=== PATIENT | male | born 1990 | race Caucasian/White ===

== ENCOUNTER 2017-03-12 06:26 | Emergency (ER) | payer OTHER ==
[~2017-03-12] VITALS: Wt 106.0 kg
--- NOTE | 2017-03-12 07:09 | ERD ---
ER Documentation Chief Complaint Chief Complaint LEFT INNNER THIGH PAIN X4 DAYS, NO INJURY, PT AMBULATORY HPI Otherwise healthy 26-year-old male presenting with a chief complaints of left upper inner leg pain worsening over the past 3 weeks. No medical conditions. Denies any trauma. No numbness, tingling, similar symptoms in past. No recent travel. No swelling. Has taken ibuprofen and Tylenol with minimal to moderate relief. Pain rated as 7 out of 10, worse with walking, and feels like his upper leg is being squeezed by 2 brick [place]. Patient has no other complaints and describes no other associated manifestations. Nursing notes have been reviewed and are consistent with history given. ROS All systems reviewed and are negative except as per history of present illness. PMhx/Soc History of Surgery: No Hx Neurological Disorder: No Hx Respiratory Disorders: Yes (ASTHMA) Hx Cardiac Disorders: No Hx Miscellaneous Medical Probl: No Hx Alcohol Use: No Hx Substance Use: No Hx Tobacco Use: No Physical Exam Vitals Vital Signs Date Time Temp Pulse Resp B/P Pulse Ox O2 Delivery O2 Flow Rate FiO2 03/12/17 06:29 98.0 95 17 144/98 100 Physical Exam Const: Well-appearing 26-year-old male in NAD. Head: Atraumatic Eyes: Normal Conjunctiva ENT: Normal External Ears, Nose and Mouth. Neck: Full range of motion..~ No meningismus. Skin: No petechiae or rashes Back: No midline or flank tenderness Ext: No cyanosis, or edema Neur: Awake and alert. Altered gait favoring left leg. Psych: Normal Mood and Affect Procedures/MDM 26-year-old otherwise healthy male presenting with a chief complaint of left inner leg pain. Denies numbness, or tingling. No back pain. No concern for neurovascular compromise. X-ray was taken of the hip, read by the radiologist, given the following impression: No evidence of fracture dislocation. Most likely diagnosis is leg pain of unknown etiology. Have discussed conservative therapy as well as follow-up with PCP within the next week. I have spoke with the patient regarding their condition and future management. They have verbally responded that they understand their status and treatment plan. The patients vitals are stable, and their current condition is appropriate for discharge. The patient will be given discharge instructions with return precautions. Departure Diagnosis: Primary Impression: Pain of left leg Condition: Stable Additional Instructions: Follow up with your PCP within the next 1-3 days for a more thorough evaluation and a possible referral to a specialist. Return the the emergency department immediately if symptoms worsen or change. If you have any questions regarding medications, ask your pharmacist or us before you leave. If any adverse reactions occur while taking your medications, discontinue the treatment and return to the emergency department immediately. Take your medications as directed, and complete the entire course of treatment. YASMANY DELCID PA-C Mar 12, 2017 07:09
--- NOTE | 2017-03-12 07:35 | RADRPT ---
PROCEDURE: XR Hip. CLINICAL INDICATION: Pain TECHNIQUE: AP and frog lateral views of the left hip were performed. COMPARISON: None. FINDINGS: Osseous structures: Normal mineralization. No evidence of fracture or dislocation. Joint spaces: Normal Soft tissues: No significant soft tissue swelling. IMPRESSION: No evidence of fracture or dislocation. RPTAT:AAJJ Physician Alexander Date Time Electronically viewed and signed by Hollie Fountain Physician on 03/12/2017 07:34 /
== END 2017-03-12 08:05 | disposition home or self-care (01) ==
LOC: FTE 06:26
DX: M79.605 Pain in left leg (principal); J45.909 Unspecified asthma, uncomplicated
CPT/HCPCS: 73510; Z7502

== ENCOUNTER 2017-10-06 11:18 | Emergency (ER) | END 2017-10-06 12:35 | disposition home or self-care (01) ==

== ENCOUNTER 2018-05-10 07:42 | Emergency (ER) | payer OTHER ==
[~2018-05-10] VITALS: Ht 175.3 cm; Wt 116.3 kg
[~2018-05-10 07:42] MED LIST: IBUP-1542 PO; NPH10OT RIGHT EAR
[2018-05-10 07:44] VITALS: BP 172/102; PULSE 74; RESP 20; Ht 175.3 cm; Wt 116.3 kg
[2018-05-10] MEDS ORDERED: NPH10OT BOTH EARS (08:06)
--- NOTE | 2018-05-10 09:12 | ERD ---
ER Documentation Chief Complaint Chief Complaint Complains of bilateral ear pain HPI 27-year-old male presenting with bilateral ear pain. Patient states he had this before and had an ear infection. He states is been going on for 4 days. He denies any runny nose or cough. He has not use any medications. Denies any fevers. Denies medical problems. NKDA. Surgical history denies. Social history denies ROS All systems reviewed and are negative except as per history of present illness. Medications Home Meds Active Scripts Neomycin/Polymyxin/Hydrocort* (Cortisporin* Otic) 10 Ml Susp, 4 DROP BOTH EARS QID for 7 Days, EA Prov:KATLYN BARCENAS PA-C 05/10/18 Ibuprofen* (Motrin*) 600 Mg Tab, 600 MG PO Q6, #30 TAB Prov:KATLYN BARCENAS PA-C 10/06/17 Neomycin/Polymyxin/Hydrocort* (Cortisporin* Otic) 10 Ml Susp, 4 DROP RIGHT EAR QID for 7 Days, EA Prov:KATLYN BARCENAS PA-C 10/06/17 Allergies Allergies: Coded Allergies: No Known Allergy (Unverified , 10/06/17) PMhx/Soc History of Surgery: No Anesthesia Reaction: No Hx Neurological Disorder: No Hx Respiratory Disorders: Yes (ASTHMA) Hx Cardiac Disorders: No Hx Miscellaneous Medical Probl: No Hx Alcohol Use: No Hx Substance Use: No Hx Tobacco Use: No Smoking Status: Never smoker FmHx Family History: No diabetes, No coronary disease, No other Physical Exam Vitals Vital Signs Date Temp Pulse Resp B/P (MAP) Pulse Ox O2 O2 Flow FiO2 Time Delivery Rate 05/10/18 98.3 74 20 172/102 96 07:44 (125) Physical Exam GENERAL: The patient is well-appearing, well-nourished, in no acute distress HEENT: Atraumatic. Conjunctivae are pink. Pupils equal, round, and reactive to light. There is no scleral icterus. Tympanic membranes clear bilaterally. Erythema noted to the external ear canal with no purulence. Oropharynx clear. NECK: C-spine is soft and supple. There is no meningismus. There is no cervical lymphadenopathy. CHEST: Clear to auscultation bilaterally. There are no rales, wheezes or rhonchi. HEART: Regular rate and rhythm. No murmurs, clicks, rubs or gallops. Procedures/MDM MDM: 27-year-old male presenting with bilateral ear irritation. Patient likely has otitis externa and will be treated with supportive medications. I have low suspicion for mastoiditis. I have low suspicion for otitis media. Patient is discharged with eardrops and recommended to refrain from using Q-tips. Patient is told if symptoms change or worsen to immediately return to the ER. All questions answered at discharge Departure Diagnosis: Primary Impression: Otitis externa Condition: Stable Patient Instructions: External Ear Infection (Adult) Referrals: [facility] YOU HAVE RECEIVED A MEDICAL SCREENING EXAM AND THE RESULTS INDICATE THAT YOU DO NOT HAVE A CONDITION THAT REQUIRES URGENT TREATMENT IN THE EMERGENCY DEPARTMENT. FURTHER EVALUATION AND TREATMENT OF YOUR CONDITION CAN WAIT UNTIL YOU ARE SEEN IN YOUR DOCTORS OFFICE WITHIN THE NEXT 1-2 DAYS. IT IS YOUR RESPONSIBILITY TO MAKE AN APPOINTMENT FOR FOLOW-UP CARE. IF YOU HAVE A PRIMARY DOCTOR --you should call your primary doctor and schedule an appointment IF YOU DO NOT HAVE A PRIMARY DOCTOR YOU CAN CALL OUR PHYSICIAN REFERRAL HOTLINE AT IF YOU CAN NOT AFFORD TO SEE A PHYSICIAN YOU CAN CHOSE FROM THE FOLLOWING [facility] [address] [facility]. [facility] [address] [facility] [facility] [address] [facility] [facility] [address] [facility]. [facility] [phone] [id number] [facility]. [facility]. [address] Additional Instructions: FOLLOW UP WITH YOUR PRIMARY CARE PHYSICIAN TOMORROW.Return to this facility if you are not improving as expected. KATLYN BARCENAS PA-C May 10, 2018 09:12
== END 2018-05-10 08:18 | disposition home or self-care (01) ==
LOC: FTE 07:42
DX: H60.93 Unspecified otitis externa, bilateral (principal); J45.909 Unspecified asthma, uncomplicated
CPT/HCPCS: 99283

== ENCOUNTER 2018-07-16 08:47 | Emergency (ER) | payer OTHER ==
[~2018-07-16] VITALS: Ht 172.7 cm; Wt 116.1 kg
[~2018-07-16 08:47] MED LIST changes: +NPH10OT BOTH EARS
[2018-07-16 08:50] VITALS: BP 161/86; PULSE 89; RESP 18; Ht 172.7 cm; Wt 116.1 kg
[2018-07-16] MEDS ORDERED: BTM.05O15 TOP (09:26)
--- NOTE | 2018-07-16 09:43 | ERD ---
ER Documentation Chief Complaint Chief Complaint itchy painful blisters on tip right thumb and index finger x1yr HPI This is a 27-year-old male patient who presents to the emergency room with complaint of rash to right first finger and thumb times 1 year. States it started as dry skin and has slowly followed into area of dry flaky plaque. Patient denies any exposure to chemicals, metals, repetitive injury. There are no other rashes or skin lesions on patient's body. Patient denies any other complaints. Patient states he has been unemployed for 1 year and has not had any unusual chemical exposures. ROS All systems reviewed and are negative except as per history of present illness. Medications Home Meds Active Scripts Betamethasone Dipropionate* (Betamethasone Dipropionate*) 0.05% - 15 Gm Oint, 1 APPLIC TOP BID for 28 Days, #15 GM APPLY TO: Prov:HERNANDO WILKINS NP 07/16/18 Neomycin/Polymyxin/Hydrocort* (Cortisporin* Otic) 10 Ml Susp, 4 DROP BOTH EARS QID for 7 Days, EA Prov:KATLYN BARCENAS PA-C 05/10/18 Ibuprofen* (Motrin*) 600 Mg Tab, 600 MG PO Q6, #30 TAB Prov:KATLYN BARCENAS PA-C 10/06/17 Neomycin/Polymyxin/Hydrocort* (Cortisporin* Otic) 10 Ml Susp, 4 DROP RIGHT EAR QID for 7 Days, EA Prov:KATLYN BARCENAS PA-C 10/06/17 Allergies Allergies: Coded Allergies: No Known Allergy (Unverified , 10/06/17) PMhx/Soc Medical and Surgical Hx: pt denies Medical Hx, pt denies Surgical Hx History of Surgery: No Anesthesia Reaction: No Hx Neurological Disorder: No Hx Respiratory Disorders: Yes (ASTHMA) Hx Cardiac Disorders: No Hx Miscellaneous Medical Probl: No Hx Alcohol Use: No Hx Substance Use: No Hx Tobacco Use: No Smoking Status: Never smoker FmHx Family History: No diabetes, No coronary disease, No other Physical Exam Vitals Vital Signs Date Temp Pulse Resp B/P (MAP) Pulse Ox O2 O2 Flow FiO2 Time Delivery Rate 07/16/18 98.3 89 18 161/86 97 08:50 (111) Physical Exam Const: No acute distress Head: Atraumatic Eyes: Normal Conjunctiva ENT: Normal External Ears, Nose and Mouth. Neck: Full range of motion. No meningismus. Resp: Clear to auscultation bilaterally Cardio: Regular rate and rhythm, no murmurs Abd: Soft, non tender, non distended. Normal bowel sounds Skin: No petechiae, no bruising. Right hand, +csm. Right thumb with mild flaking on pad of thumb, +mild itch. Right #1 finger, lateral aspect with dry, flaking, plaque with lichenification. Back: No midline or flank tenderness Ext: No cyanosis, or edema Neur: Awake and alert Psych: Normal Mood and Affect Procedures/MDM This 27-year-old male patient presents to the emergency room with rash on right thumb and first finger times 1 year. Since rash concerning for eczema, psoriasis, chemical dermatitis. However patient denies exposure to any chemicals, there were no atopic dermatitis or psoriasis rashes found anywhere else on the patient's body. This may be a chronic contact dermatitis, patient was encouraged to evaluate all surfaces that he comes in contact with to establish source of irritation. The rash did not appear to be a cellulitis or infection as patient did not present with any systemic symptoms, no erythema, no swelling, no drainage. She was given instructions on use of topical steroid cream. Patient was given referrals to local clinics. Patient was encouraged to follow-up with a primary care doctor or technology instructor within the next 4 weeks. Patient was instructed with signs and symptoms of worsening of condition or infection and instructed to return to the emergency room with fever, redness, swelling, irruption of rash on any other parts of the body. Departure Diagnosis: Primary Impression: Dermatitis Condition: Stable Patient Instructions: Atopic Dermatitis (Eczema) Referrals: [facility] YOU HAVE RECEIVED A MEDICAL SCREENING EXAM AND THE RESULTS INDICATE THAT YOU DO NOT HAVE A CONDITION THAT REQUIRES URGENT TREATMENT IN THE EMERGENCY DEPARTMENT. FURTHER EVALUATION AND TREATMENT OF YOUR CONDITION CAN WAIT UNTIL YOU ARE SEEN IN YOUR DOCTORS OFFICE WITHIN THE NEXT 1-2 DAYS. IT IS YOUR RESPONSIBILITY TO MAKE AN APPOINTMENT FOR FOLOW-UP CARE. IF YOU HAVE A PRIMARY DOCTOR --you should call your primary doctor and schedule an appointment IF YOU DO NOT HAVE A PRIMARY DOCTOR YOU CAN CALL OUR PHYSICIAN REFERRAL HOTLINE AT IF YOU CAN NOT AFFORD TO SEE A PHYSICIAN YOU CAN CHOSE FROM THE FOLLOWING [facility] [address] [facility] [address] [facility] [address] [facility] [address] [facility]. [facility] [address] [facility]. [facility] [address] Additional Instructions: Thank you very much for allowing us to participate in your care. Your health and safety is our top priority at [facility]. Call your primary care doctor TOMORROW for an appointment during the next 2-4 days and bring all the information and medications prescribed. Have prescriptions filled and follow precisely the directions on the label. If the symptoms get worse and your provider is unavailable, return to the Emergency Department immediately. USE STEROID OINTMENT TWICE DAILY FOR 4 WEEKS. DO NOT USE STEROID OINTMENT >4WEEKS USE AQUAPHOR OINTMENT INBETWEEN APPLICATION OF STEROID OINTMENT FOLLOW-UP WITH PRIMARY CARE PROVIDER OR BLADE ALIGNER IF THIS TREATMENT DOES NOT WORK RETURN TO ED WITH SIGNS OF INFECTION: RED, HOT, SWELLING, DRAINAGE HERNANDO WILKINS NP Jul 16, 2018 09:43
== END 2018-07-16 09:40 | disposition home or self-care (01) ==
LOC: FTE 08:47
DX: L30.9 Dermatitis, unspecified (principal); J45.909 Unspecified asthma, uncomplicated
CPT/HCPCS: 99283